=== PATIENT | female | born 1940 | race Hispanic/Latino ===

== ENCOUNTER 2018-06-18 06:41 | Outpatient (CLI) | payer MEDICARE ==
[2018-06-18 07:07] LABS: Hematocrit 39.3 % (30.3-42.9); Hemoglobin 13.2 gm/dl (10.1-14.3); Mean Corpuscular HGB Conc 34 % (30-34); Mean Corpuscular Volume 90 fl (79-97); Platelet Count 206 K/mm3 (140-440); Red Blood Count 4.36 M/mm3 (3.65-5.03)
[2018-06-18 07:53] LABS: Alanine Aminotransferase 15 units/L (7-56); Albumin 4.4 g/dL (3.9-5); BUN/Creatinine Ratio 31; Blood Urea Nitrogen 28 mg/dL (7-17); Calcium 9.5 mg/dL (8.4-10.2); Hemolysis Index 1
[2018-06-18 12:07] LABS: Creatinine,Urine 26.8 mg/dL (0.1-20.0); Protein/Creatinine Ratio,Urine 0.26
== END 2018-06-18 06:42 | disposition home or self-care (01) ==
LOC: LAB 06:41
PROVIDERS: ATTEND Internal Medicine
DX: R80.0 Isolated proteinuria (principal); R94.4 Abnormal results of kidney function studies; E78.5 Hyperlipidemia, unspecified; I10 Essential (primary) hypertension; E79.0 Hyperuricemia without signs of inflammatory arthritis and tophaceous disease; E87.1 Hypo-osmolality and hyponatremia
CPT/HCPCS: 36415; 80053; 82570; 84156; 85027

== ENCOUNTER 2019-02-07 06:30 | Outpatient (CLI) | payer MEDICARE ==
[2019-02-07 06:58] LABS: Basophils # (Auto) 0.1 K/mm3 (0.0-0.1); Basophils % (Auto) 1.3 % (0.0-1.8); Eosinophils # (Auto) 0.6 K/mm3 (0.0-0.4); Eosinophils % (Auto) 11.1 % (0.0-4.3); Hematocrit 38.6 % (30.3-42.9); Lymphocytes # (Auto) 1.6 K/mm3 (1.2-5.4); Lymphocytes % (Auto) 30.2 % (13.4-35.0); Mean Corpuscular HGB Conc 34 % (30-34); Mean Corpuscular Volume 90 fl (79-97); Monocytes # (Auto) 0.6 K/mm3 (0.0-0.8); Monocytes % (Auto) 10.5 % (0.0-7.3); Platelet Count 173 K/mm3 (140-440); Red Blood Count 4.29 M/mm3 (3.65-5.03); Red Cell Distribution Width 13.9 % (13.2-15.2)
[2019-02-07 07:04] LABS: Albumin 4.2 g/dL (3.9-5); Calcium 9.4 mg/dL (8.4-10.2)
[2019-02-07 07:22] LABS: Creatinine,Urine 62.4 mg/dL (0.1-20.0); Protein/Creatinine Ratio,Urine 0.37
== END 2019-02-07 06:31 | disposition home or self-care (01) ==
LOC: LAB 06:30
PROVIDERS: ATTEND Internal Medicine
DX: R94.4 Abnormal results of kidney function studies (principal); E79.0 Hyperuricemia without signs of inflammatory arthritis and tophaceous disease; E87.1 Hypo-osmolality and hyponatremia; R80.0 Isolated proteinuria
CPT/HCPCS: 36415; 80053; 82570; 84156; 85025